=== PATIENT | female | born 1950 | race Caucasian/White ===

== ENCOUNTER → 2020-12-30 | Outpatient (CLI) | payer MEDICARE ==
[~2020-12-30] MED LIST: BENTYL 20MG TAB20 MG PO; CEFUROXIME500 MG PO; ZOFRAN4 MG PO
== END ==
LOC: MAMO 10:28
DX: Z12.31 Encounter for screening mammogram for malignant neoplasm of breast (principal)
CPT/HCPCS: 77063; 77067